=== PATIENT | female | born 1980 | race African-American/Black ===

== ENCOUNTER 2016-11-02 10:36 | Emergency (ER) | payer MEDICAID ==
[~2016-11-02] VITALS: Ht 167.6 cm; Wt 69.0 kg
[~2016-11-02 10:36] MED LIST: AMOX1TAB16 PO
[2016-11-02] MEDS ORDERED: KETOROLAC 60MG/2ML VIAL IM ONE (12:00)
[2016-11-02 12:24] VITALS: BP 113/73
== END 2016-11-02 13:30 | disposition home or self-care (01) ==
LOC: ER 11:37
DX: M54.5 Low back pain (principal); Z79.899 Other long term (current) drug therapy; F17.200 Nicotine dependence, unspecified, uncomplicated
CPT/HCPCS: 72100; 96372; 99284; J1885; Z7610

== ENCOUNTER 2016-12-07 02:56 | Emergency (ER) | payer MEDICAID, MEDICARE ==
[~2016-12-07] VITALS: Ht 167.6 cm; Wt 91.0 kg
[2016-12-07 03:07] VITALS: BP 106/53
[2016-12-07 03:46] LABS: CLARITY URINE CLEAR (CLEAR); COLOR URINE YELLOW (YELLOW); GLUCOSE URINE NEGATIVE (NEGATIVE); KETONES URINE TRACE (NEGATIVE); LEUKOCYTE ESTERASE URINE 2+ (NEGATIVE); NITRITE URINE NEGATIVE (NEGATIVE); OCCULT BLOOD URINE NEGATIVE (NEGATIVE); PROTEIN URINE NEGATIVE (NEGATIVE); SPECIFIC GRAVITY URINE 1.026 (1.005-1.030)
[2016-12-07 04:04] LABS: BACTERIA URINE TRACE; RBC URINE 0-2 /hpf (0-2); SQUAMOUS EPITHELIAL CELL URINE RARE /lpf (RARE/1+)
[2016-12-07] MEDS ORDERED: CEFTRIAXONE SODIUM 1 G/VIAL IM ONE (05:30)
[2016-12-07] MEDS ORDERED: LIDOCAINE HCL 1% 20ML VIAL (Pyxis) INJ MC ONE (05:30)
[2016-12-07] MEDS ORDERED: AZITHROMYCIN 500 MG TABLET PO ONE (05:30)
[2016-12-09 04:20] LABS: CHLAMYDIA TRACHOMATIS NAA Negative (Negative); NEISSERIA GONORRHOEAE NAA Negative (Negative)
== END 2016-12-07 05:42 | disposition home or self-care (01) ==
LOC: ER 02:56
DX: Z20.2 Contact with and (suspected) exposure to infections with a predominantly sexual mode of transmission (principal); R30.0 Dysuria; F17.200 Nicotine dependence, unspecified, uncomplicated; Z98.890 Other specified postprocedural states
CPT/HCPCS: 81001; 81025; 87491; 87591; 96372; 99284; J0696; J3490

== ENCOUNTER 2017-01-03 12:30 | Emergency (ER) | payer MEDICAID, MEDICARE ==
[~2017-01-03] VITALS: Ht 167.6 cm; Wt 96.0 kg
[2017-01-03 16:07] VITALS: BP 112/77
[2017-01-03 16:37] LABS: CLARITY URINE CLEAR (CLEAR); COLOR URINE YELLOW (YELLOW); GLUCOSE URINE NEGATIVE (NEGATIVE); KETONES URINE NEGATIVE (NEGATIVE); LEUKOCYTE ESTERASE URINE NEGATIVE (NEGATIVE); NITRITE URINE NEGATIVE (NEGATIVE); OCCULT BLOOD URINE NEGATIVE (NEGATIVE); PH URINE 5.5 (4.5-8.0); PROTEIN URINE NEGATIVE (NEGATIVE); SPECIFIC GRAVITY URINE 1.022 (1.005-1.030); UROBILINOGEN URINE 0.2 E.U./dL (0.2-1.0)
== END 2017-01-03 17:50 | disposition home or self-care (01) ==
LOC: ER 12:30
DX: N76.0 Acute vaginitis (principal); F17.210 Nicotine dependence, cigarettes, uncomplicated
CPT/HCPCS: 81003; 81025; 87210; 99284

== ENCOUNTER 2017-01-30 19:32 | Emergency (ER) | payer MEDICARE ==
[~2017-01-30] VITALS: Ht 167.6 cm; Wt 91.0 kg
[2017-01-31] MEDS ORDERED: CEFTRIAXONE SODIUM 250 MG/VIAL IM ONE (01:15)
[2017-01-31] MEDS ORDERED: AZITHROMYCIN 500 MG TABLET PO ONE (01:15)
[2017-01-31] MEDS ORDERED: LIDOCAINE HCL 1% 20ML VIAL (Pyxis) INJ MC ONE (01:30)
[2017-01-31 02:07] LABS: CLARITY URINE TURBID (CLEAR); COLOR URINE YELLOW (YELLOW); GLUCOSE URINE NEGATIVE (NEGATIVE); KETONES URINE NEGATIVE (NEGATIVE); LEUKOCYTE ESTERASE URINE 3+ (NEGATIVE); NITRITE URINE NEGATIVE (NEGATIVE); OCCULT BLOOD URINE NEGATIVE (NEGATIVE); PH URINE 5.5 (4.5-8.0); PROTEIN URINE NEGATIVE (NEGATIVE); SPECIFIC GRAVITY URINE 1.032 (1.005-1.030)
[2017-01-31 03:00] VITALS: BP 126/77
== END 2017-01-31 04:45 | disposition home or self-care (01) ==
LOC: ER 01-31 04:29
DX: N39.0 Urinary tract infection, site not specified (principal); Z20.2 Contact with and (suspected) exposure to infections with a predominantly sexual mode of transmission; F17.210 Nicotine dependence, cigarettes, uncomplicated; F12.10 Cannabis abuse, uncomplicated; Z98.890 Other specified postprocedural states
CPT/HCPCS: 81001; 81025; 87210; 96372; 99284; J0696; J3490; Z7610

== ENCOUNTER 2017-04-15 09:08 | Emergency (ER) | payer MEDICARE ==
[~2017-04-15] VITALS: Ht 167.6 cm; Wt 95.0 kg
[2017-04-15 11:45] VITALS: BP 107/69
== END 2017-04-15 12:16 | disposition left against medical advice (07) ==
LOC: ER 10:42
DX: A64 Unspecified sexually transmitted disease (principal); F17.200 Nicotine dependence, unspecified, uncomplicated; Z98.890 Other specified postprocedural states
CPT/HCPCS: 99283; Z7610

== ENCOUNTER 2017-04-15 12:27 | Emergency (ER) | payer MEDICARE ==
[~2017-04-15] VITALS: Ht 167.6 cm; Wt 95.0 kg
[2017-04-15 16:20] VITALS: BP 94/57
== END 2017-04-15 18:38 | disposition left against medical advice (07) ==
LOC: ER 12:27
DX: N89.8 Other specified noninflammatory disorders of vagina (principal); Z11.3 Encounter for screening for infections with a predominantly sexual mode of transmission
CPT/HCPCS: 99281; Z7610

== ENCOUNTER 2017-05-27 13:43 | Emergency (ER) | payer MEDICARE ==
[~2017-05-27] VITALS: Ht 167.6 cm; Wt 95.0 kg
[2017-05-27 18:58] LABS: CLARITY URINE CLEAR (CLEAR); COLOR URINE YELLOW (YELLOW); GLUCOSE URINE NEGATIVE (NEGATIVE); KETONES URINE NEGATIVE (NEGATIVE); LEUKOCYTE ESTERASE URINE NEGATIVE (NEGATIVE); NITRITE URINE NEGATIVE (NEGATIVE); OCCULT BLOOD URINE NEGATIVE (NEGATIVE); PROTEIN URINE NEGATIVE (NEGATIVE); SPECIFIC GRAVITY URINE 1.018 (1.005-1.030); UROBILINOGEN URINE 0.2 E.U./dL (0.2-1.0)
[2017-05-27 19:55] VITALS: BP 94/58
== END 2017-05-27 21:24 | disposition home or self-care (01) ==
LOC: ER 13:43
DX: N76.0 Acute vaginitis (principal)
CPT/HCPCS: 81003; 81025; 87210; 99284

== ENCOUNTER 2019-01-11 13:02 | Emergency (ER) | payer MEDICARE ==
[~2019-01-11] VITALS: Ht 162.6 cm; Wt 89.0 kg
[2019-01-11] MEDS ORDERED: KETOROLAC 15MG/ML VIAL IM ONE (15:30)
[2019-01-11] MEDS ORDERED: CYCLOBENZAPRINE 10MG TABLET PO ONE (15:30)
[2019-01-11 16:10] VITALS: BP 101/71
== END 2019-01-11 16:18 | disposition home or self-care (01) ==
LOC: ER 13:02
DX: M54.5 Low back pain (principal); M25.512 Pain in left shoulder; R51 Headache; R11.10 Vomiting, unspecified; R41.82 Altered mental status, unspecified; F17.200 Nicotine dependence, unspecified, uncomplicated; Z98.890 Other specified postprocedural states
CPT/HCPCS: 96372; 99283; J1885

== ENCOUNTER 2019-01-31 18:09 | Emergency (ER) | payer MEDICARE ==
[~2019-01-31] VITALS: Ht 167.6 cm; Wt 100.0 kg
[2019-01-31] MEDS ORDERED: HYDROCODONE/ACETAMINOPHEN 5/325MG TABLET PO ONE (19:15)
[2019-01-31] MEDS ORDERED: BACITRACIN ZINC OINT UDPKT TOP ONE (19:15)
[2019-01-31] MEDS ORDERED: LIDOCAINE 1%/EPI 1:100,000 10 ML VIAL IJ ONE (19:15)
[2019-01-31] MEDS ORDERED: LIDOCAINE/EPINEPHR/TETRACAINE 3ML TP ONE (19:15)
[2019-01-31] MEDS ORDERED: LIDOCAINE HCL 1% 20ML VIAL (Pyxis) INJ INFIL ONE (19:30)
[2019-01-31] MEDS ORDERED: LIDOCAINE HCL/EPINEPHRINE 1%-EPI 1:100,000 20 ML VIAL INFIL ONE (19:30)
[2019-01-31 20:43] VITALS: BP 110/62
== END 2019-01-31 20:46 | disposition home or self-care (01) ==
LOC: ER 18:09
DX: L02.412 Cutaneous abscess of left axilla (principal); L02.411 Cutaneous abscess of right axilla; F17.200 Nicotine dependence, unspecified, uncomplicated; Z98.890 Other specified postprocedural states
CPT/HCPCS: 10060; 99283; J3490

== ENCOUNTER 2019-02-17 21:09 | Emergency (ER) | payer MEDICARE ==
[~2019-02-17] VITALS: Ht 167.6 cm; Wt 91.0 kg
[2019-02-17 22:19] VITALS: BP 106/68
== END 2019-02-18 00:02 | disposition home or self-care (01) ==
LOC: ER 21:09
DX: Z76.0 Encounter for issue of repeat prescription (principal); L02.413 Cutaneous abscess of right upper limb; F91.8 Other conduct disorders; F17.210 Nicotine dependence, cigarettes, uncomplicated
CPT/HCPCS: 99283

== ENCOUNTER 2020-10-26 12:30 | Emergency (ER) | payer MEDICARE ==
[~2020-10-26] VITALS: Ht 167.6 cm; Wt 92.0 kg
[2020-10-26 12:32] VITALS: BP 108/72
[2020-10-26] MEDS ORDERED: CIPR-263 MT (13:29)
[2020-10-26] MEDS ORDERED: KETOROLAC 60MG/2ML VIAL IM ONE (13:30)
== END 2020-10-26 13:39 | disposition home or self-care (01) ==
LOC: ER 12:30
DX: L73.2 Hidradenitis suppurativa (principal)
CPT/HCPCS: 99282

== ENCOUNTER 2021-04-02 13:38 | Emergency (ER) | payer MEDICARE ==
[~2021-04-02] VITALS: Ht 167.6 cm; Wt 100.0 kg
[~2021-04-02 13:38] MED LIST changes: -AMOX1TAB16 PO; +CIPR-263 MT
[2021-04-02 13:46] VITALS: BP 113/68
[2021-04-02] MEDS ORDERED: ALBE200T8 PO (15:45)
[2021-04-02] MEDS ORDERED: SULF1TAB48 MT (15:45)
[2021-04-03] MEDS ORDERED: IBUP-2028 MT (06:31)
== END 2021-04-02 15:57 | disposition home or self-care (01) ==
LOC: ER 13:38
DX: L29.9 Pruritus, unspecified (principal); Z88.5 Allergy status to narcotic agent; Z98.890 Other specified postprocedural states
CPT/HCPCS: 99283; A4217; Z7610; 99281

== ENCOUNTER 2021-04-03 04:27 | Emergency (ER) | payer MEDICARE ==
[~2021-04-03] VITALS: Ht 167.6 cm; Wt 95.0 kg
[~2021-04-03 04:27] MED LIST changes: +ALBE200T8 PO; +SULF1TAB48 MT
[2021-04-03] MEDS ORDERED: IBUP-2028 MT (06:31)
[2021-04-03] MEDS ORDERED: IBUPROFEN 400MG TABLET PO ONE (06:45)
[2021-04-03 07:33] VITALS: BP 142/83
== END 2021-04-03 07:46 | disposition home or self-care (01) ==
LOC: ER 04:27
DX: M79.10 Myalgia, unspecified site (principal); Z98.890 Other specified postprocedural states; Z88.6 Allergy status to analgesic agent
CPT/HCPCS: 99282

== ENCOUNTER 2022-10-19 15:03 | Emergency (ER) | payer MEDICAID, MEDICARE ==
[~2022-10-19] VITALS: Ht 167.6 cm; Wt 93.0 kg
[~2022-10-19 15:03] MED LIST changes: +IBUP-2028 MT
[2022-10-19 15:42] VITALS: BP 122/81
== END 2022-10-19 17:14 | disposition left against medical advice (07) ==
LOC: ER 15:13
DX: Z53.21 Procedure and treatment not carried out due to patient leaving prior to being seen by health care provider (principal); N89.8 Other specified noninflammatory disorders of vagina; M54.9 Dorsalgia, unspecified; Z20.2 Contact with and (suspected) exposure to infections with a predominantly sexual mode of transmission
CPT/HCPCS: 99281

== ENCOUNTER 2022-10-20 20:33 | Emergency (ER) | payer MEDICAID, MEDICARE ==
[~2022-10-20] VITALS: Ht 167.6 cm; Wt 111.3 kg
[2022-10-21] MEDS ORDERED: KETOROLAC 60MG/2ML VIAL IM STA (00:44)
[2022-10-21] MEDS ORDERED: MAGNESIUM/ALUMINUM HYDROXIDE/SIMETHICONE 30ML UDC PO ONE (00:45)
[2022-10-21] MEDS ORDERED: KETOROLAC 30MG/ML VIAL IV STA (01:02)
[2022-10-21] MEDS ORDERED: MAGNESIUM/ALUMINUM HYDROXIDE/SIMETHICONE 30ML UDC PO NR (02:45)
[2022-10-21] MEDS ORDERED: KETOROLAC 60MG/2ML VIAL IM NR (02:45)
[2022-10-21 02:47] LABS: CLARITY URINE TURBID (CLEAR); COLOR URINE YELLOW (YELLOW); KETONES URINE TRACE (NEGATIVE); LEUKOCYTE ESTERASE URINE TRACE (NEGATIVE); NITRITE URINE NEGATIVE (NEGATIVE); OCCULT BLOOD URINE 1+ (NEGATIVE); PROTEIN URINE 1+ (NEGATIVE); SPECIFIC GRAVITY URINE 1.036 (1.005-1.030); UROBILINOGEN URINE 0.2 E.U./dL (0.2-1.0)
[2022-10-21 02:47] LABS: BASOPHILS % 0.6 % (0.0-2.0); EOSINOPHILS % 1.4 % (0.0-5.0); HEMOGLOBIN. 13.1 g/dL (12.0-16.0); LYMPHOCYTES % 30.4 % (20.0-50.0); MEAN CORPUSCULAR HEMOGLOBIN 28.3 pg (28.0-32.0); MEAN CORPUSCULAR VOLUME 86.1 fL (81.0-99.0); NEUTROPHILS % 60.6 % (40.0-76.0); PLATELET 246 x1000/uL (130-400); RED BLOOD CELL COUNT 4.65 mill/uL (4.2-5.4)
[2022-10-21 02:52] LABS: CHLORIDE 105 mEq/L (98-107)
[2022-10-21 05:16] VITALS: BP 118/67
[2022-10-21] MEDS ORDERED: IOHEXOL-300 100 ML BOTTLE ONE (06:07)
[2022-10-21] MEDS ORDERED: CEFTRIAXONE 500 MG in DEXTROSE 5% WATER 25 ML IV ONE (06:15)
[2022-10-21] MEDS ORDERED: NAPR-681 PO (06:21)
[2022-10-21] MEDS ORDERED: METR-167 PO (06:21)
[2022-10-21] MEDS ORDERED: DOXY100T28 MT (06:21)
[2022-10-21] MEDS: CEFTRIAXONE SODIUM 500 MG/VIAL IM NR ×2 (06:45→08:52)
== END 2022-10-21 08:54 | disposition home or self-care (01) ==
LOC: ER 20:42
DX: N76.0 Acute vaginitis (principal); Z88.5 Allergy status to narcotic agent; Z98.890 Other specified postprocedural states
CPT/HCPCS: 36415; 74177; 80053; 81003; 83690; 85025; 87210; 87491; 87591; 96372; 96374; 99285; J0696; J1885; Q9967; Z7610

== ENCOUNTER 2023-04-01 23:19 | Emergency (ER) | payer MEDICAID, MEDICARE ==
[~2023-04-01] VITALS: Ht 167.6 cm; Wt 111.4 kg
[~2023-04-01 23:19] MED LIST changes: +CEPH500T MT; +DOXY100T28 MT; +METR-167 PO; +NAPR-681 PO
[2023-04-02 02:06] VITALS: BP 116/82; PULSE 99; RESP 18; TEMP 97.8; O2SAT 98
[2023-04-02] MEDS ORDERED: DOXY-456 MT (06:41)
[2023-04-02] MEDS ORDERED: CEFTRIAXONE SODIUM 500 MG/VIAL IM ONE (06:45)
[2023-04-02] MEDS ORDERED: DOXYCYCLINE HYCLATE 100MG CAPSULE PO ONE (06:45)
== END 2023-04-02 07:48 | disposition home or self-care (01) ==
LOC: ER 23:19
DX: N76.0 Acute vaginitis (principal); Z98.890 Other specified postprocedural states; Z79.899 Other long term (current) drug therapy
CPT/HCPCS: 81025; 99283; 87210; 87591; J0696; Z7610

== ENCOUNTER 2023-04-11 19:32 | Emergency (ER) | payer MEDICARE ==
[~2023-04-11] VITALS: Ht 170.2 cm; Wt 100.0 kg
[~2023-04-11 19:32] MED LIST changes: +DOXY-456 MT
[2023-04-11] MEDS ORDERED: SODIUM CHLORIDE 0.9% 1,000 ML IV ONE (19:45)
[2023-04-11 19:48] VITALS: BP 132/60; PULSE 88; RESP 16; TEMP 98.4; O2SAT 99
== END 2023-04-11 21:01 | disposition left against medical advice (07) ==
LOC: ER 19:32
DX: R55 Syncope and collapse (principal); Z98.890 Other specified postprocedural states; Z79.899 Other long term (current) drug therapy
CPT/HCPCS: 99283; 71045; J7030